=== PATIENT | male | born 1965 | race Caucasian/White ===

== ENCOUNTER 2021-09-07 03:51 | Day surgery (SDC) | payer OTHER, SELFPAY ==
[2021-08-27 13:59] VITALS: BMI 26.6
[2021-09-07 06:43] VITALS: BP 123/78; PULSE 87; RESP 17; TEMP 37; O2SAT 94; BMI 27.3
[2021-09-07] MEDS: LACTATED RINGERS 1,000 ML 150 ML IV CONT (06:45)
--- NOTE | 2021-09-07 07:19 | P.PNAN_ITS ---
Anes - Initial Pre Proc Eval Procedure: Operation Date: 09/07/21 08:00 Proposed Procedures p Screening Colonoscopy - Riley Johnson MD Date/Time: 09/07/21 07:19 Surgeon: Riley Johnson MD Pre Op Diagnosis: neoplasm screening Patient Data Age: 56 Gender: M Height: 1.75 m Weight: 84 kg Last Vital Signs Temp 37.0 C 09/07/21 06:43 Pulse 87 09/07/21 06:43 Resp 17 09/07/21 06:43 BP 123/78 09/07/21 06:43 Pulse Ox 94 09/07/21 06:43 Allergies Allergy/AdvReac Type Severity Reaction Status Date / Time No Known Allergies Allergy Verified 09/07/21 06:41 Home Medications Medication Instructions Recorded Confirmed Type No Home Medications 08/27/21 09/07/21 History Patient hx anesthesia problems: none Family hx anesthesia problems: none Results Review: All pre-operative results and documents have been reviewed as part of the pre-operative evaluation. [facility] Social History Social History Smoking status: Never smoker Drinks per week: 2 Substance use: never Substance use type: does not use Living arrangements: with family Spiritual care concerns: No Anes - Eval Final PreProcedure Day of Procedure 09/07/21 07:19 Patient weight: overweight Heart: regular rate and rhythm Lungs: clear to auscultation Airway: Mallampati scale class II Neurological: alert and oriented Last oral intake: >/= 8 hours ASA classification: II Emergent: no Anesthetic plan: proceed Anesthesia type and monitoring: general GIVS and standard monitoring Results Review: All pre-operative results and documents have been reviewed as part of the pre-operative evaluation. Informed Consent: The patient's anesthetic plan and its attendant risks and benefits were discussed with the patient/family/POA. Questions were solicited and answers provided to the satisfaction of the patient/family/POA.
--- NOTE | 2021-09-07 07:55 | WPDGICN ---
Assessment and Plan Assessment and plan (1) Encounter for screening colonoscopy: Code(s): Z12.11 - Encounter for screening for malignant neoplasm of colon Status: Acute Assessment and Plan: Patient presents for screening colonoscopy. Appears to be at average risk for colon polyps. GI Consult Note Consult date/time: 09/07/21 07:55 HPI: Lucas Ann is a 56 year old male Presents for screening colonoscopy. Patient's current weight appetite and bowel movements are normal. He denies abdominal pain. He has had no bleeding. Family history is noncontributory. Review of Systems Review of Systems: All systems reviewed & are unremarkable except as noted in HPI and below PMFSH Social History Social History Smoking status: Never smoker Drinks per week: 2 Substance use: never Substance use type: does not use Living arrangements: with family Spiritual care concerns: No Meds Home Medications and Allergies Home Medications Medication Instructions Recorded Confirmed Type No Home Medications 08/27/21 09/07/21 History Allergies Allergy/AdvReac Type Severity Reaction Status Date / Time No Known Allergies Allergy Verified 09/07/21 06:41 Vital Signs Vital Signs - 24 hr 09/07/21 06:43 Temperature 98.6 F Pulse Rate 87 Respiratory Rate 17 Blood Pressure 123/78 Pulse Oximetry 94 Exam Narrative: Physical exam reveals patient to be alert. Vital signs stable. HEENT exam is unremarkable. Patient is anicteric. Lungs are clear to auscultation and percussion. Heart is without murmur or extra sounds. Abdominal exam bowel sounds are present soft nontender with no organomegaly. Digital external rectal exam is normal.
[2021-09-07 08:20] VITALS: BP 111/73; PULSE 75; RESP 24; O2SAT 99
[2021-09-07 08:30] VITALS: BP 128/92; PULSE 81; RESP 25; O2SAT 100
[2021-09-07 08:40] VITALS: BP 125/86; PULSE 78; RESP 25; O2SAT 100
== END 2021-09-07 08:44 | disposition home or self-care (01) ==
PROVIDERS: PCP Family Medicine; Visit Provider Internal Medicine Gastroenterology
PROC: 0DJD8ZZ Inspection of Lower Intestinal Tract, Via Natural or Artificial Opening Endoscopic (ICD-10-PCS; CPT 45378; principal; 2021-09-07 08:00)
DX: Z12.11 Encounter for screening for malignant neoplasm of colon (principal); K64.8 Other hemorrhoids
CPT/HCPCS: 45378; J2001; J2704; J7120